=== PATIENT | male | born 1990 | race American Indian/Alaskan Native ===

== ENCOUNTER 2017-10-22 12:03 | Emergency (ER) | payer SELFPAY ==
[2017-10-22 12:18] VITALS: BP 123/68
[2017-10-22] MEDS ORDERED: HYDROGEN PEROXIDE TP ONE (13:36)
--- NOTE | 2017-10-22 13:43 | Emergency Department Report ---
ED ENT HPI - General Chief complaint: Earache Stated complaint: RIGHT EARACHE Time Seen by Provider: 10/22/17 13:07 Source: patient Mode of arrival: Ambulatory Limitations: No Limitations - History of Present Illness Initial comments: This is a 27-year-old male nontoxic, well nourished in appearance, no acute signs of distress presents to the ED with c/o of right earache x1 week. Patient describes pain as aching with level of 8/10. Denies any hearing loss, tragus pain, mastoid tenderness, fever, chills, headache, nausea, vomiting, chest pain. shortness of breathe, abdominal pain. Denies any allergies or PMH. MD complaint: ear pain -: week(s) (1) Location: R ear Severity: mild Severity scale (0 -10): 8 Quality: aching Consistency: constant Improves with: none Worsens with: none Associated Symptoms: denies: fever, cough, gum swelling, toothache, pain with swallowing, sore throat, tinnitus, hearing loss, discharge from ear, rhinorrhea - Related Data Previous Rx's Medication Instructions Recorded Last Taken Type Amoxicillin 500 mg PO BID #20 capsule 10/22/17 Unknown Rx Allergies Allergy/AdvReac Type Severity Reaction Status Date / Time No Known Allergies Allergy Unverified 10/22/17 12:15 ED Dental HPI - General Chief complaint: Earache Stated complaint: RIGHT EARACHE Time Seen by Provider: 10/22/17 13:07 Source: patient Mode of arrival: Ambulatory Limitations: No Limitations - Related Data Previous Rx's Medication Instructions Recorded Last Taken Type Amoxicillin 500 mg PO BID #20 capsule 10/22/17 Unknown Rx Allergies Allergy/AdvReac Type Severity Reaction Status Date / Time No Known Allergies Allergy Unverified 10/22/17 12:15 ED Review of Systems ROS: Stated complaint: RIGHT EARACHE Other details as noted in HPI Constitutional: denies: chills, fever Eyes: denies: eye pain, eye discharge, vision change ENT: other (right earache). denies: ear pain, throat pain Respiratory: denies: cough, shortness of breath, wheezing Cardiovascular: denies: chest pain, palpitations Endocrine: no symptoms reported Gastrointestinal: denies: abdominal pain, nausea, diarrhea Genitourinary: denies: urgency, dysuria Musculoskeletal: denies: back pain, joint swelling, arthralgia Skin: denies: rash, lesions Neurological: denies: headache, weakness, paresthesias Psychiatric: denies: anxiety, depression Hematological/Lymphatic: denies: easy bleeding, easy bruising ED Past Medical Hx - Past Medical History Previous Medical History?: No - Surgical History Past Surgical History?: No - Social History Smoking Status: Never Smoker Substance Use Type: Marijuana - Medications Home Medications: Home Medications Medication Instructions Recorded Confirmed Last Taken Type Amoxicillin 500 mg PO BID #20 capsule 10/22/17 Unknown Rx ED Physical Exam - General Limitations: No Limitations General appearance: alert, in no apparent distress - Head Head exam: Present: atraumatic, normocephalic - Eye Eye exam: Present: normal appearance Pupils: Present: normal accommodation - ENT ENT exam: Present: normal exam, normal orophraynx, mucous membranes moist, normal external ear exam - Expanded ENT Exam Expanded TM/Canal exam: Erythema: Right TM, Bulging: Right TM, Cerumen Impaction: Right TM Mouth exam: Present: normal external inspection Teeth exam: Present: normal inspection Throat exam: Positive: normal inspection - Neck Neck exam: Present: normal inspection - Respiratory Respiratory exam: Present: normal lung sounds bilaterally. Absent: respiratory distress - Cardiovascular Cardiovascular Exam: Present: regular rate, normal rhythm. Absent: systolic murmur, diastolic murmur, rubs, gallop - GI/Abdominal GI/Abdominal exam: Present: soft, normal bowel sounds - Rectal Rectal exam: Present: deferred - Extremities Exam Extremities exam: Present: normal inspection - Back Exam Back exam: Present: normal inspection - Neurological Exam Neurological exam: Present: alert, oriented X3 - Psychiatric Psychiatric exam: Present: normal affect, normal mood - Skin Skin exam: Present: warm, dry, intact, normal color. Absent: rash ED Course Vital Signs 10/22/17 12:16 Temperature 98.2 F Pulse Rate 78 Respiratory 16 Rate Blood Pressure 123/68 O2 Sat by Pulse 99 Oximetry - Reevaluation(s) Reevaluation #1: 10/22/17 13:44 Patient is speaking in full sentences with no signs of distress noted. - Ear Wax Removal Right Ear Cerumenolytic Used: Other (1/2 hydrogen peroxide with 1/2 of warm tap water) Ear Canal Irrigated by: Ear Canal(s) Curettaged: plastic scoops, plastic loops Results: Re-examined: cerumen removed completel TM Visible: TM(s) erythematous Ear Canal: atraumatic Patient Tolerated Procedure: well, no complications Complications: no problems ED Medical Decision Making - Medical Decision Making This is a 27-year-old male that presents with cerumen impaction and right otitis media. PAtient is stable and was examiend by me. Patient will be treated with amox at d/c. Patient recevied a dose of 2 drops of ofloxcin in the ED to the right ear after removal of ear wax. Patient was instructed to f/u with a primary care doctor in 3-5 days or if symptoms worsen and continue to return to the emergency room as soon as possible. At time time of discharge, the patient does not seem toxic or ill in appearance. No acute signs of distress noted. Patient agrees to discharge treatment plan of care. No further questions noted by the patient. Critical care attestation.: If time is entered above; I have spent that time in minutes in the direct care of this critically ill patient, excluding procedure time. ED Disposition Clinical Impression: Impacted cerumen of right ear Otitis media Qualifiers: Otitis media type: unspecified Laterality: right Qualified Code(s): H66.91 - Otitis media, unspecified, right ear Disposition: DC-01 TO HOME OR SELFCARE Is pt being admited?: No Does the pt Need Aspirin: No Condition: Stable Instructions: Amoxicillin (By mouth), Cerumen Impaction (ED), Otitis Media (ED) Additional Instructions: Follow-up with a primary care doctor in 3-5 days or if symptoms worsen and continue return to emergency room as soon as possible. Prescriptions: Amoxicillin 500 mg PO BID #20 capsule Referrals: PRIMARY MD RONNY [Primary Care Provider] - 3-5 Days KG MEDINA MD [Staff Physician] - 3-5 Days [facility] [Provider Group] - 3-5 Days [facility] [place] [Outside] - 3-5 Days [facility] [Outside] - 3-5 Days Forms: Work/School Release Form(ED)
[2017-10-22] MEDS ORDERED: OCUFLOX OD SCH (15:00)
== END 2017-10-22 15:20 | disposition home or self-care (01) ==
LOC: ED 12:03
DX: H66.91 Otitis media, unspecified, right ear (principal); H61.21 Impacted cerumen, right ear; F12.10 Cannabis abuse, uncomplicated
CPT/HCPCS: 99282